=== PATIENT | female | born 1950 | race Two or more races ===

== ENCOUNTER 2022-02-07 13:02 | Inpatient (IN) | payer MEDICARE ==
[2022-02-07] MEDS ORDERED: HYDROmorphone 0.5 MG/0.5 ML SYRINGE IVP STA (13:32)
[2022-02-07] MEDS ORDERED: hydrALAZINE HCL 20 MG/ML 1 ML VIAL IVP STA (13:32)
[2022-02-07] MEDS ORDERED: KETOROLAC 15 MG/ML 1 ML VIAL IVP STA (13:33)
--- NOTE | 2022-02-07 13:36 | ED ---
General Adult HPI - General Chief complaint: Extremity Injury, Lower Stated complaint: Leg pain Time Seen by Provider: 02/07/22 13:05 Source: patient, EMS, RN notes reviewed, old records reviewed Mode of arrival: EMS Limitations: no limitations - History of Present Illness Initial comments: This is a 72-year-old male who presents to the emergency department complaining of bilateral hip pain more on the left than the right. Patient states she fell 3 weeks ago off about a 3 foot height and landed on her chest and right side. Patient states her since then her hips of her and it's been difficult to walk but she has been able to walk. Patient states this morning the pain got so bad that she was unable to him but because she could not overcome the pain. Patient denies any back pain. Patient is chest pain or abdominal pain. Patient denies hitting her head or neck. Patient denies any numbness or weakness. Patient states the pain is in both hips and into the groin area bilaterally. Patient also states when she was at the [facility] they didn't x-ray her hips but they did tell if she has high blood pressure and she states that her blood pressure still remains high. - Related Data Home Medications Medication Instructions Recorded Confirmed Cefuroxime Axetil [Ceftin] 500 mg PO BID 02/07/22 02/07/22 Omeprazole/Sodium Bicarbonate 1 cap PO DAILY PRN 02/07/22 02/07/22 [Omeprazole-Bicarb 20-1,100 Cap] lisinopriL [Zestril] 10 mg PO DAILY 02/07/22 02/07/22 Allergies Allergy/AdvReac Type Severity Reaction Status Date / Time No Known Allergies Allergy Verified 02/07/22 16:41 Review of Systems ROS Statement: Those systems with pertinent positive or pertinent negative responses have been documented in the HPI. ROS Other: All systems not noted in ROS Statement are negative. Past Medical History Past Medical History: Hypertension History of Any Multi-Drug Resistant Organisms: None Reported Past Surgical History: Unable to Obtain Smoking Status: Current every day smoker Past Alcohol Use History: None Reported Past Drug Use History: None Reported General Exam - General Exam Comments Initial Comments: GENERAL: Patient is well-developed and well-nourished. Patient is nontoxic and well- hydrated and is in mild distress. ENT: Neck is soft and supple. No significant lymphadenopathy is noted. Oropharynx is clear. Moist mucous membranes. Neck has full range of motion without eliciting any pain. EYES: The sclera were anicteric and conjunctiva were pink and moist. Extraocular movements were intact and pupils were equal round and reactive to light. Eyelids were unremarkable. PULMONARY: Unlabored respirations. Good breath sounds bilaterally. No audible rales rhonchi or wheezing was noted. CARDIOVASCULAR: There is a regular rate and rhythm without any murmurs gallops or rubs. ABDOMEN: Soft and nontender with normal bowel sounds. SKIN: Skin is clear with no lesions or rashes and otherwise unremarkable. NEUROLOGIC: Patient is alert and oriented x3. Cranial nerves II through XII are grossly intact. Motor and sensory are also intact. Normal speech, volume and content. Symmetrical smile. MUSCULOSKELETAL: Patient come barely lift any leg off the bed because of the pain. Palpation of the hips and pelvis in the inguinal areas was very painful to the patient LYMPHATICS: No significant lymphadenopathy is noted PSYCHIATRIC: Normal psychiatric evaluation. Limitations: no limitations Course Vital Signs 02/07/22 02/07/22 02/07/22 13:05 14:16 16:00 Temperature 98.3 F Pulse Rate 70 74 Respiratory 18 16 Rate Blood Pressure 205/92 205/92 156/71 O2 Sat by Pulse 98 95 Oximetry 02/07/22 17:29 Temperature Pulse Rate 68 Respiratory 16 Rate Blood Pressure 155/72 O2 Sat by Pulse 97 Oximetry Medical Decision Making - Medical Decision Making EKG shows sinus rhythm at 75 bpm FL interval is on a 36 dresses 82 QT interval 38 QTC is 417. Patient's EKG shows no ST segment elevation or depression. Patient's CT showed a sacral fracture a hairline fracture of the acetabulum on the left. I spoke with Dr. Delaney and he agreed to admit the patient so I admitted the patient wrote admitting orders. - Lab Data Result diagrams: 02/07/22 14:51 02/07/22 14:51 Lab Results 02/07/22 02/07/22 02/07/22 Range/Units 14:51 14:51 15:11 WBC 6.8 (3.8-10.6) k/uL RBC 5.13 (3.80-5.40) m/uL Hgb 14.3 (11.4-16.0) gm/dL Hct 44.9 (34.0-46.0) % MCV 87.4 (80.0-100.0) fL MCH 27.9 (25.0-35.0) pg MCHC 32.0 (31.0-37.0) g/dL RDW 14.3 (11.5-15.5) % Plt Count 316 (150-450) k/uL MPV 7.5 Neutrophils % 66 % Lymphocytes % 23 % Monocytes % 6 % Eosinophils % 3 % Basophils % 1 % Neutrophils # 4.5 (1.3-7.7) k/uL Lymphocytes # 1.6 (1.0-4.8) k/uL Monocytes # 0.4 (0-1.0) k/uL Eosinophils # 0.2 (0-0.7) k/uL Basophils # 0.1 (0-0.2) k/uL Sodium 142 (137-145) mmol/L Potassium 4.2 (3.5-5.1) mmol/L Chloride 107 (98-107) mmol/L Carbon Dioxide 28 (22-30) mmol/L Anion Gap 7 mmol/L BUN 11 (7-17) mg/dL Creatinine 0.80 (0.52-1.04) mg/dL Est GFR (CKD-EPI)AfAm 87 (>60 ml/min/1.73 sqM) Est GFR (CKD-EPI)NonAf 75 (>60 ml/min/1.73 sqM) Glucose 87 (74-99) mg/dL POC Glucose (mg/dL) 110 H (75-99) mg/dL POC Glu [employer] ID Susana Allen Calcium 9.6 (8.4-10.2) mg/dL Total Bilirubin 0.5 (0.2-1.3) mg/dL AST 22 (14-36) U/L ALT 20 (4-34) U/L Alkaline Phosphatase 123 (38-126) U/L Total Protein 7.3 (6.3-8.2) g/dL Albumin 4.2 (3.5-5.0) g/dL Disposition Clinical Impression: Sacral fracture, Acetabular fracture Disposition: ADMITTED IP TO THIS [facility] Referrals: None,Stated [Primary Care Provider] - 1-2 days Time of Disposition: 18:31
--- NOTE | 2022-02-07 14:39 | XR ---
EXAMINATION TYPE: XR Hip LT and AP Pelvis DATE OF EXAM: 02/07/2022 COMPARISON: NONE HISTORY: Trauma TECHNIQUE: A single AP view of the pelvis is obtained. Two views of the left hip are obtained. FINDINGS: Osteopenia. Tiny osteophytosis of the hip joints. Unremarkable hip joints otherwise. No definite acut e fracture line identified. Degenerative changes of the lower lumbar spine. Grossly unremarkable sacr oiliac joints. IMPRESSION: No definite acute fracture or dislocation in the pelvis or the left hip.
--- NOTE | 2022-02-07 14:41 | XR ---
EXAMINATION TYPE: XR chest 2V DATE OF EXAM: 02/07/2022 COMPARISON: NONE HISTORY: Possible CHF TECHNIQUE: Frontal and lateral views of the chest are obtained. FINDINGS: Slightly prominent interstitial lung markings, nonspecific. This could be age-related however minimal pulmonary edema cannot be excluded, please correlate clinically. Grossly unremarkable lungs otherwis e. No sizable pleural effusion or definite pneumothorax. No gross cardiomegaly. Aortic atherosclerotic c alcifications. Mild degenerative changes of the lower thoracic spine. IMPRESSION: As above.
[2022-02-07] MEDS ORDERED: ONDANSETRON 4 MG/2 ML VIAL IVP STA (14:53)
[2022-02-07] MEDS ORDERED: ACETAMINOPHEN TAB 325 MG TAB PO STA (14:53)
[2022-02-07 15:12] LABS: Albumin 4.2 g/dL (3.5-5.0); Calcium 9.6 mg/dL (8.4-10.2); Potassium 4.2 mmol/L (3.5-5.1); Total Bilirubin 0.5 mg/dL (0.2-1.3); Total Protein 7.3 g/dL (6.3-8.2)
[2022-02-07 15:13] LABS: Glucose,Whole Blood 110 mg/dL (75-99)
[2022-02-07 15:20] LABS: Basophils # (A) 0.1 k/uL (0-0.2); Basophils % (A) 1 %; Eosinophils # (A) 0.2 k/uL (0-0.7); Eosinophils % (A) 3 %; HCT 44.9 % (34.0-46.0); HGB 14.3 gm/dL (11.4-16.0); Lymphocytes # (A) 1.6 k/uL (1.0-4.8); Lymphocytes % (A) 23 %; MCH 27.9 pg (25.0-35.0); MCV 87.4 fL (80.0-100.0); Mean Platelet Volume 7.5; Monocytes # (A) 0.4 k/uL (0-1.0); Monocytes % (A) 6 %; Neutrophils # (A) 4.5 k/uL (1.3-7.7); Neutrophils % (A) 66 %; Platelet Count 316 k/uL (150-450); RBC 5.13 m/uL (3.80-5.40); RDW 14.3 % (11.5-15.5); WBC 6.8 k/uL (3.8-10.6)
--- NOTE | 2022-02-07 16:55 | CT ---
EXAMINATION TYPE: CT lumbar spine wo con DATE OF EXAM: 02/07/2022 COMPARISON: None HISTORY: Fall while walking dog CT DLP: 506.2 mGycm Automated exposure control for dose reduction was used. Images obtained from the level of T12-S1 vertebra without contrast. Lumbar vertebrae have Normal alignment. There is degenerative disc space narrowing at L4-5 with spurr ing of the endplates. Facet joints are intact. No compression fracture. There is no lumbar paraspinal mass. Abdominal aorta is atheromatous. Sacroiliac joints are intact. There is nondisplaced fracture of the lateral mass of the sacrum anteriorly on the left side close to the sacroiliac joint. There is cortical buckling. There is 2 cm area of sclerosis in the lateral mas s of the right side of the sacrum consistent with bone infarct. IMPRESSION: Nondisplaced left-sided sacral fracture. No lumbar spinal fracture. L4-5 degenerative disc changes.
--- NOTE | 2022-02-07 17:08 | CT ---
EXAMINATION TYPE: CT pelvis wo con DATE OF EXAM: 02/07/2022 COMPARISON: None HISTORY: Fall while walking dog CT DLP: 923.3 mGycm Automated exposure control for dose reduction was used. Images obtained from the iliac crests to the subtrochanteric femurs without contrast. The sacroiliac joints are intact. There is buckle fracture of the anterior cortex of the lateral mass of the sacrum on the left side. No evidence of focal bone destruction. Iliac crests are intact. Ther e is hairline fracture of the anterior aspect left acetabulum. The right acetabulum appears intact. P ubic bone is intact. The proximal femurs are intact. Sacral segments have normal alignment. Coccyx is intact. Bladder distends smoothly. There are sigmoid diverticula. No sign of diverticulitis. No free fluid in the pelvis. No evidence of pelvic hematoma. Appendix is posterior and appears normal. IMPRESSION: Nondisplaced fracture of the left side lateral mass of the sacrum. Hairline fracture of the anterior labrum of the left acetabulum.
[2022-02-07] MEDS ORDERED: SODIUM CHLORIDE 0.9% 1,000 ML IV ONE (18:35)
[2022-02-07] MEDS: HYDROmorphone 0.5 MG/0.5 ML SYRINGE IVP PRN (21:54)
[2022-02-08] MEDS: KETOROLAC 15 MG/ML 1 ML VIAL IVP SCH ×5 (00:57→22:55)
[2022-02-08] MEDS: HYDROmorphone 0.5 MG/0.5 ML SYRINGE IVP PRN (04:43)
[2022-02-08] MEDS ORDERED: ONDANSETRON 4 MG/2 ML VIAL IVP PRN (10:11)
--- NOTE | 2022-02-08 10:59 | P.HPOR ---
History of Present Illness H&P Date: 02/08/22 Chief Complaint: Bilateral hip pain, difficulty with ambulation, history of previous fall Patient is a 72-year-old female who presented to [facility] yesterday for further evaluation of bilateral hip pain, difficulty ambulation with history of previous fall. Patient apparently fell about 3 weeks ago from a 3 foot height. She describes the fall is landing facedown but having more of her right lower extremities. Since the fall, she has been able to ambulate but the pain has been progressively getting worse. [facility], they did initial x-rays with no acute findings, she then reported to our hospital for further evaluation. Patient was evaluated today at bedside, she is resting comfortably in her hospital bed. She's been nonweightbearing since the initial admission. She has been utilizing no narcotic medication at this time. She states that most of the pain is in the hip/groin regions. She denies any upper extremity pain, she denies any paresthesias of the upper extremities. She denies any knee/foot or ankle pain bilaterally. She denies any numbness or tingling in lower extremities. She denies any general numbness or peroneal numbness, she denies any loss of bowel or bladder function. Patient denies any previous orthopedic surgery involving the lower back or pelvis. She states that she normally utilizes nothing for ambulation but has been utilizing a walker since the fall about 3 weeks ago. She does live with 7 other people she states upper [place]. Review of Systems Constitutional: Reports as per HPI Past Medical History Past Medical History: Cancer, Hypertension Additional Past Medical History / Comment(s): Ovarian CA 40 years ago, chemo and radiation History of Any Multi-Drug Resistant Organisms: None Reported Past Surgical History: Adenoidectomy, Breast Surgery, Hysterectomy, Tonsillectomy Additional Past Surgical History / Comment(s): lumps removed from left and right breast at the same time as her hysterectomy Past Anesthesia/Blood Transfusion Reactions: No Reported Reaction Past Psychological History: No Psychological Hx Reported Smoking Status: Current every day smoker, Light tobacco smoker Past Alcohol Use History: None Reported Past Drug Use History: None Reported Additional Drug Use History / Comment(s): pt smokes 3-4 cigarettes or less/day - Past Family History Mother Family Medical History: Cancer Additional Family Medical History / Comment(s): at 38 years old Father Family Medical History: Diabetes Mellitus, Myocardial Infarction ([place]) Medications and Allergies Home Medications Medication Instructions Recorded Confirmed Type Cefuroxime Axetil [Ceftin] 500 mg PO BID 02/07/22 02/07/22 History Omeprazole/Sodium Bicarbonate 1 cap PO DAILY PRN 02/07/22 02/07/22 History [Omeprazole-Bicarb 20-1,100 Cap] lisinopriL [Zestril] 10 mg PO DAILY 02/07/22 02/07/22 History Allergies Allergy/AdvReac Type Severity Reaction Status Date / Time No Known Allergies Allergy Verified 02/07/22 16:41 Physical Examination General orthopedic exam: Patient demonstrates full range of motion in all major muscle groups of the bilateral upper extremities, she has no sensory deficits. No notable strength deficits in all major muscle groups. She demonstrates no point tenderness throughout the bilateral upper extremities Inspection of the cervical, thoracic and lumbar spine demonstrates no skin changes, this to include open lesions. She is nontender through the paraspinal and midline regions of the cervical, thoracic or lumbar spine Inspection of bilateral lower extremities demonstrates no obvious malalignment, there is no effusions present on the bilateral knees. Patient demonstrates no point tenderness to the bilateral knees, lower leg, foot or ankles. Logroll maneuver of the bilateral lower extremities reproduces mild groin pain, more severe on the left. Straight leg raise is negative bilaterally. Negative clonus bilateral lower extremities. Plantar flexion, dorsiflexion, EHL, FHL are intact. Flexion and extension intact of the bilateral knees. Patient does have a little bit of difficulty with hip flexion bilaterally, more on the left due to pain. Results - Labs Labs: Abnormal Lab Results - Last 24 Hours (Table) 02/07/22 Range/Units 15:11 POC Glucose (mg/dL) 110 H (75-99) mg/dL H & H 02/07/22 Range/Units 14:51 Hgb 14.3 (11.4-16.0) gm/dL Hct 44.9 (34.0-46.0) % Result Diagrams: 02/07/22 14:51 02/07/22 14:51 - Diagnostic results Hip x-ray: report reviewed, image reviewed CT Scan - lumbar: report reviewed, image reviewed Assessment and Plan Assessment: LC1 pelvic injury Minimally displaced left acetabular fracture Minimally displaced sacral fracture Difficulty with ambulation History of previous fall Plan: Imaging: Reports and images reviewed of the lumbar CT, pelvis CT and hip x-rays. Images demonstrate the minimally displaced left acetabular and sacral fracture. Bilateral hip joints remain intact. No significant SI joint widening. Plan: Dr. Delaney had initially spoke with Dr. Benson when the patient came in the ER, they were admitted under orthopedic care. A consult has been placed for internal medicine for medical management. No emergent orthopedic surgical intervention recommended at this time Recommend conservative treatment, this to include weight-bear as tolerated with walker Pain control, recommend use of Tylenol/NSAIDs, low-dose narcotic as needed PT/OT evaluation GI and DVT prophylaxis, we'll start patient on heparin 5000 units every 12 during inpatient stay, likely discharge with aspirin 81 mg twice a day for a month Discussed the patient discharge options, she is very adamant on going home. I advised that we initially will have PT/OT evaluate the patient. If patient does progress well, consider discharged home with home health care. We discussed the option of subacute rehab the patient does not progress. Further recommendations to follow Time with Patient: Less than 30
[2022-02-08] MEDS ORDERED: PANTOPRAZOLE 40 MG TABLET PO PRN (13:38)
[2022-02-08] MEDS ORDERED: SODIUM BICARBONATE TAB 650 MG TAB PO PRN (13:41)
[2022-02-08] MEDS: amLODIPine 5 MG TAB PO SCH (13:50)
[2022-02-08] MEDS: lisinopriL 10 MG TAB PO SCH (13:50)
[2022-02-08 14:20] LABS: INR 0.9 (<1.2); Prothrombin Time 9.8 sec (9.0-12.0)
[2022-02-08 14:21] LABS: Partial Thromboplastin Time 21.7 sec (22.0-30.0)
--- NOTE | 2022-02-08 15:33 | P.HPIM ---
History of Present Illness H&P Date: 02/08/22 Chief Complaint: Medical management 72-year-old woman with medical history of hypertension, active smoker presented for hip pain after fall. Patient was transferred from [place] after she is found to have a pelvic injury, minimally displaced sacral fracture, minimally displaced left acetabular fracture. Medicine was consulted for medical management. Patient's only complaint at the moment is pain, otherwise denies: Fevers, chills, nausea, vomiting, chest pain, palpitations, syncope, presyncope, cough, dyspnea, abdominal pain, constipation, diarrhea, dysuria, dyschezia, numbness/weakness of extremities. Upon my evaluation, patient was noted to be hypertensive 159/72, heart rate 68, 95% on room air. CBC is unremarkable. Chemistries are unremarkable. LFTs are unremarkable. PT/INR are normal, APTT is slightly low at 21.7. Pelvis CT demonstrated nondisplaced fracture of the left lateral mass of the sacrum, hairline fracture of the anterior labrum of the left acetabulum. Lumbar spine CT showed degenerative changes in the L4 to 5, but no lumbar spinal fracture. Hip x-ray was nondiagnostic. Chest x-ray showed slightly prominent interstitial lung markings, no pneumothorax, no gross cardiomegaly, mild degenerative changes of the lower thoracic spine. EKG demonstrated normal sinus rhythm without evidence of ischemia, normal intervals, normal QRS duration. All Systems reviewed and pertinent positives and negatives noted in HPI, all other symptoms are negative Gen: awake, alert HEENT: normocephalic, atraumatic, good hearing acuity, moist mucous membranes Resp: good air exchange, breathing comfortably with no accessory muscle use CVS: good distal perfusion x 4, GI: soft, NTTP, ND : no SPT, no CVAT, barlow catheter not present MSK: no pitting edema, no clubbing Neuro: non-focal, moving all extremities Psych: cooperative, euthymic mood Labs and imaging are reviewed as above Assessment/plan: Hypertension -Resume patient's home lisinopril -Started amlodipine -Pain control Pelvic fracture Acetabular fracture -Care per primary team -DVT prophylaxis per primary team -PT/OT Thank you for this consult. A member of our team is available 22/04, should any questions or concerns arise, please reach out via perfect serve. Past Medical History Past Medical History: Cancer, Hypertension Additional Past Medical History / Comment(s): Ovarian CA 40 years ago, chemo and radiation History of Any Multi-Drug Resistant Organisms: None Reported Past Surgical History: Adenoidectomy, Breast Surgery, Hysterectomy, Tonsillectomy Additional Past Surgical History / Comment(s): lumps removed from left and right breast at the same time as her hysterectomy Past Anesthesia/Blood Transfusion Reactions: No Reported Reaction Past Psychological History: No Psychological Hx Reported Smoking Status: Current every day smoker, Light tobacco smoker Past Alcohol Use History: None Reported Past Drug Use History: None Reported Additional Drug Use History / Comment(s): pt smokes 3-4 cigarettes or less/day - Past Family History Mother Family Medical History: Cancer Additional Family Medical History / Comment(s): at 38 years old Father Family Medical History: Diabetes Mellitus, Myocardial Infarction ([place]) Medications and Allergies Home Medications Medication Instructions Recorded Confirmed Type Cefuroxime Axetil [Ceftin] 500 mg PO BID 02/07/22 02/07/22 History Omeprazole/Sodium Bicarbonate 1 cap PO DAILY PRN 02/07/22 02/07/22 History [Omeprazole-Bicarb 20-1,100 Cap] lisinopriL [Zestril] 10 mg PO DAILY 02/07/22 02/07/22 History Allergies Allergy/AdvReac Type Severity Reaction Status Date / Time No Known Allergies Allergy Verified 02/07/22 16:41 Physical Exam Osteopathic Statement: *. No significant issues noted on an osteopathic structural exam other than those noted in the History and Physical/Consult. Vitals: Vital Signs Temp Pulse Pulse Resp BP BP Pulse Ox 02/08/22 07:30 97.6 F 68 19 159/72 95 02/08/22 02:00 97.9 F 64 16 122/66 96 02/07/22 23:37 18 02/07/22 19:35 97.7 F 77 18 166/76 99 02/07/22 19:14 75 16 156/79 97 02/07/22 17:29 68 16 155/72 97 02/07/22 16:00 74 16 156/71 95 Intake and Output 02/08/22 02/08/22 02/08/22 06:59 14:59 22:59 Other: Voiding Method External Catheter External Catheter # Voids 2 Weight 72.575 kg Results CBC & Chem 7: 02/07/22 14:51 02/07/22 14:51 Labs: Abnormal Lab Results - Last 24 Hours (Table) 02/08/22 Range/Units 13:12 APTT 21.7 L (22.0-30.0) sec Thrombosis Risk Factor Assmnt - Choose All That Apply Each Factor Represents 1 point: Obesity (BMI >25) Each Risk Factor Represents 2 Points: Age 61-74 years Each Risk Factor Represents 5 Points: Hip, pelvis, or leg fracture (< 1 month) Thrombosis Risk Factor Assessment Total Risk Factor Score: 8 Thrombosis Risk Factor Assessment Level: High Risk
[2022-02-08] MEDS: HEPARIN SODIUM,PORCINE/PF 5,000 UNIT/0.5 ML SYRINGE SQ SCH (21:35)
[2022-02-09] MEDS: KETOROLAC 15 MG/ML 1 ML VIAL IVP SCH ×2 (06:04→12:38)
[2022-02-09] MEDS: lisinopriL 10 MG TAB PO SCH (08:03)
[2022-02-09] MEDS: HEPARIN SODIUM,PORCINE/PF 5,000 UNIT/0.5 ML SYRINGE SQ SCH (08:03)
[2022-02-09] MEDS: amLODIPine 5 MG TAB PO SCH (08:03)
[2022-02-09 08:12] VITALS: RESP 17
--- NOTE | 2022-02-09 09:00 | P.PN ---
Subjective Progress Note Date: 02/09/22 Principal diagnosis: LC1 pelvic injury Minimally displaced left acetabular fracture Minimally displaced sacral fracture Patient evaluated today bedside, she is sitting up in bed eating breakfast. She states she is doing a lot better than she was prior to the admission. She was able to ambulate with therapy, she's been utilizing a walker. She is very eager to go home. I did discuss with case management yesterday the possibility of home health care. She has no other orthopedic complaints at this time. Objective - Vital Signs Vital signs: Vital Signs Temp 98.3 F 02/09/22 08:00 Pulse 71 02/09/22 08:00 Resp 17 02/09/22 08:00 BP 193/82 02/09/22 08:00 Pulse Ox 94 L 02/09/22 08:00 Intake & Output 02/08/22 02/09/22 02/09/22 18:59 06:59 18:59 Other: Voiding Method External Catheter External Catheter # Voids 2 - Exam General orthopedic exam: Patient demonstrates full range of motion in all major muscle groups of the bilateral upper extremities, she has no sensory deficits. No notable strength deficits in all major muscle groups. She demonstrates no point tenderness throughout the bilateral upper extremities Inspection of the cervical, thoracic and lumbar spine demonstrates no skin finney ges, this to include open lesions. She is nontender through the paraspinal and midline regions of the cervical, thoracic or lumbar spine Inspection of bilateral lower extremities demonstrates no obvious malalignment, there is no effusions present on the bilateral knees. Patient demonstrates no point tenderness to the bilateral knees, lower leg, foot or ankles. Logroll maneuver of the bilateral lower extremities reproduces mild groin pain, more severe on the left. Straight leg raise is negative bilaterally. Negative clonus bilateral lower extremities. Plantar flexion, dorsiflexion, EHL, FHL are intact. Flexion and extension intact of the bilateral knees. Patient does have a little bit of difficulty with hip flexion bilaterally, more on the left due to pain. - Labs CBC & Chem 7: 02/07/22 14:51 02/07/22 14:51 Labs: Abnormal Lab Results - Last 24 Hours (Table) 02/08/22 Range/Units 13:12 APTT 21.7 L (22.0-30.0) sec Assessment and Plan Assessment: LC1 pelvic injury Minimally displaced left acetabular fracture Minimally displaced sacral fracture Difficulty with ambulation History of previous fall Plan: Plan: I have been in discussion with case management regarding discharge with home healthcare. Due to patient's insurance, there has been some difficulty setting up home health care. I'm not opposed outpatient physical therapy, I will provide a prescription for discharge before unable to obtain home health care services. Recommending weight-bear as tolerated with walker at all times Pain control, recommend use of Tylenol/NSAIDs, low-dose narcotic as needed GI and DVT prophylaxis, continue heparin during inpatient stay, aspirin 81 mg twice a day at discharge Other director medical writing and recommendations appreciated Discharge planning: Plan for discharge home today
--- NOTE | 2022-02-09 13:37 | P.DS ---
Providers Date of admission: 02/07/22 18:35 Expected date of discharge: 02/09/22 Attending physician: Joe Delaney DO Consults: 02/08/22 10:10 Consult Physician Routine Consulting Provider: Melchor Dobson Consult Reason/Comments: medical management Do you want consulting provider notified?: Yes Primary care physician: Stated None Hospital Course: Date of admission: 02/07/2022 Date of discharge: 02/09/2022 Admission diagnosis: LC1 pelvic injury, minimally displaced left acetabular fracture, minimally displaced left sacral fracture Discharge diagnosis: Same Attending physician: Dr. Delaney Surgical procedures: None Brief history: Patient is a 72-year-old female who presented to [facility] on 02/07/2022 for further evaluation of bilateral hip pain and difficulty with ambulation. Patient had a fall about 3 weeks ago while at home. Patient has been able to ambulate since the injury, she did report to the hospital after being evaluated initially at [facility] with no acute findings being found on x-ray. Further evaluation and [facility] demonstrated an LC type I pelvic injury with a minimally displaced left acetabular and sacral fracture. Patient was admitted under orthopedic care for further management. Hospital course: Patient's orthopeidc and medical care was provided daily. Patient had daily physical therapy to include strengthening range of motion as well as education with walker ambulation. Patient was treated with heparin 5000 units for DVT prophylaxis during inpatient stay. Patient was followed by internal medicine during her inpatient stay. Discharge condition/disposition: Patient will be discharged home in stable condition. Discharge medications: Instructions are given on resumption of patient's normal daily medications per primary care recommendation, in addition patient will be prescribed tramadol 50 mg, aspirin 81 mg. Discharge instructions: 1. Weight-bear as tolerated with walker 2. Home health care versus outpatient physical therapy as prescribed 3. Pain medication as needed, okay utilize Tylenol for pain 4. Aspirin 81 mg twice a day for DVT prophylaxis for 30 days 5. Plan for [facility]up at [facility] 2 weeks for recheck Procedures: None Patient Condition at Discharge: Fair Plan - Discharge Summary Discharge Rx Participant: No New Discharge Prescriptions: New Aspirin [Adult Low Dose Aspirin EC] 81 mg PO BID #60 tab traMADol HCl [Ultram] 50 mg PO Q6H PRN #28 tab PRN Reason: Pain No Action Cefuroxime Axetil [Ceftin] 500 mg PO BID lisinopriL [Zestril] 10 mg PO DAILY Omeprazole/Sodium Bicarbonate [Omeprazole-Bicarb 20-1,100 Cap] 1 cap PO DAILY PRN PRN Reason: Heartburn Discharge Medication List Cefuroxime Axetil [Ceftin] 500 mg PO BID 02/07/22 [History] Omeprazole/Sodium Bicarbonate [Omeprazole-Bicarb 20-1,100 Cap] 1 cap PO DAILY PRN 02/07/22 [History] lisinopriL [Zestril] 10 mg PO DAILY 02/07/22 [History] Aspirin [Adult Low Dose Aspirin EC] 81 mg PO BID #60 tab 02/09/22 [Rx] traMADol HCl [Ultram] 50 mg PO Q6H PRN #28 tab 02/09/22 [Rx] Follow up Appointment(s)/Referral(s): None,Stated [Primary Care Provider] - 1-2 days Joe Delaney DO [Doctor of Osteopathic Medicine] - 2 Weeks Activity/Diet/Wound Care/Special Instructions: Home Care: [employer] working on finding an accepting agency... Orthopedic discharge instructions: 1. Weight-bear as tolerated with walker 2. Home healthcare versus outpatient physical therapy 3. Tramadol as needed for pain, okay to use [id number] Tylenol 4. Aspirin 81 mg twice a day for DVT prophylaxis for 30 days 5. Plan for [facility]-up at [facility] 2 weeks Discharge Disposition: HOME SELF-CARE
[2022-02-09 15:09] VITALS: BP 189/81; PULSE 67; TEMP 97.6
--- NOTE | 2022-02-09 17:11 | P.PN ---
Subjective Progress Note Date: 02/09/22 No new complaints today. Medically stable for discharge Gen: awake, alert HEENT: normocephalic, atraumatic, good hearing acuity, moist mucous membranes Resp: good air exchange, breathing comfortably with no accessory muscle use CVS: good distal perfusion x 4, GI: soft, NTTP, ND : no SPT, no CVAT, barlow catheter not present MSK: no pitting edema, no clubbing Neuro: non-focal, moving all extremities Psych: cooperative, euthymic mood Labs and imaging are reviewed as above Assessment/plan: Hypertension -Resume patient's home lisinopril -Started amlodipine -Pain control Pelvic fracture Acetabular fracture -Care per primary team -DVT prophylaxis per primary team -PT/OT Thank you for this consult. A member of our team is available 22/04, should any questions or concerns arise, please reach out via perfect serve. Objective - Vital Signs Vital signs: Vital Signs Temp 97.6 F 02/09/22 14:00 Pulse 67 02/09/22 14:00 Resp 17 02/09/22 14:00 BP 189/81 02/09/22 14:00 Pulse Ox 96 02/09/22 14:00 Intake & Output 02/08/22 02/09/22 02/09/22 18:59 06:59 18:59 Other: Voiding Method External Catheter External Catheter # Voids 2 4 - Labs CBC & Chem 7: 02/07/22 14:51 02/07/22 14:51
== END 2022-02-09 17:27 | disposition home or self-care (01) | DRG 551 ==
LOC: EDSEX → EC 13:02 → 4SSUR 18:35
PROVIDERS: ADMIT Orthopaedic Surgery Hand Surgery; ATTEND Orthopaedic Surgery Hand Surgery
DX: S32.10XA Unspecified fracture of sacrum, initial encounter for closed fracture (principal); S32.402A Unspecified fracture of left acetabulum, initial encounter for closed fracture; M51.36 Other intervertebral disc degeneration, lumbar region; W17.89XA Other fall from one level to another, initial encounter; I10 Essential (primary) hypertension; F17.210 Nicotine dependence, cigarettes, uncomplicated; Z90.710 Acquired absence of both cervix and uterus; Z79.899 Other long term (current) drug therapy; Z85.43 Personal history of malignant neoplasm of ovary; Z92.3 Personal history of irradiation; Z83.3 Family history of diabetes mellitus; Z82.49 Family history of ischemic heart disease and other diseases of the circulatory system
CPT/HCPCS: 36415; 71046; 72131; 72192; 73502; 80053; 85025; 85610; 85730; 93005; 96374; 96375; 99285